=== PATIENT | male | born 1985 | race Caucasian/White ===

== ENCOUNTER 2019-03-15 23:56 | Emergency (ER) | payer OTHER ==
[~2019-03-15] VITALS: Ht 180.3 cm; Wt 117.9 kg
[~2019-03-15 23:56] MED LIST: CEPH500 PO; OXYACE5T PO
[2019-03-16] MEDS ORDERED: LORCET 5-325 M1 EACH (00:08)
[2019-03-16] MEDS ORDERED: IBUP800 (00:08)
[2019-03-16] MEDS ORDERED: CLIN300 PO (00:17)
== END 2019-03-16 00:33 | disposition home or self-care (01) ==
LOC: ER 23:56
DX: G89.18 Other acute postprocedural pain (principal); K08.89 Other specified disorders of teeth and supporting structures; Z79.899 Other long term (current) drug therapy
CPT/HCPCS: 99282; A9270

== ENCOUNTER 2019-03-20 21:55 | Emergency (ER) | payer OTHER ==
[~2019-03-20] VITALS: Ht 180.3 cm; Wt 117.9 kg
[~2019-03-20 21:55] MED LIST changes: +CLIN300 PO; +IBUP800; +LORCET 5-325 M1 EACH
[2019-03-20] MEDS ORDERED: Zantac150 MG PO (22:17)
[2019-03-20 22:41] LABS: BASOPHILS ABSOLUTE AUTO 0.12 K/mm3 (0.00-0.23); BASOPHILS PERCENT AUTO 1 % (0-2); EOSINOPHILS ABSOLUTE AUTO 0.36 K/mm3 (0.00-0.68); EOSINOPHILS PERCENT AUTO 3 % (0-6); Hematocrit 45.3 % (37.0-53.0); Hemoglobin 15.2 g/dL (13.5-17.5); IMMATURE GRAN ABSOLUTE AUTO 0.02 K/mm3 (0.00-0.10); IMMATURE GRAN PERCENT AUTO 0 % (0-1); LYMPHOCYTES ABSOLUTE AUTO 3.82 K/mm3 (0.84-5.20); LYMPHOCYTES PERCENT AUTO 29 % (21-46); MONOCYTES ABSOLUTE AUTO 1.17 K/mm3 (0.16-1.47); MONOCYTES PERCENT AUTO 9 % (4-13); Mean Corpuscular HGB 32.3 pg (26.0-34.0); Mean Corpuscular HGB Conc 33.6 g/dL (31.5-36.5); Mean Corpuscular Volume 96 fL (80-100); Mean Platelet Volume 9.6 fL (9.1-12.4); NEUTROPHILS ABSOLUTE AUTO 7.73 K/mm3 (1.96-9.15); NEUTROPHILS PERCENT AUTO 58 % (41-73); Platelet Count 240 K/mm3 (150-400); RDW Coefficient Variation 12.5 % (11.7-14.2); RDW Standard Deviation 44.2 fL (35.1-46.3); White Blood Cell Count 13.22 K/mm3 (4.00-11.30)
[2019-03-20 22:58] LABS: Alanine Aminotransfer (ALT/SGP 55 U/L (12-78); Albumin, Blood 4.3 g/dL (3.4-5.0); Alk Phos 75 U/L (50-136); Anion Gap 6 mmol/L (6-16); Aspartate Aminotrans (AST/SGOT 38 U/L (12-37); Bilirubin, Total 0.7 mg/dL (0.1-1.0); Blood Urea Nitrogen 14 mg/dL (8-24); Bun/Creatinine Ratio 13.5 (12.0-20.0); CO2, Blood 27 mmol/L (21-32); Calcium, Blood 9.6 mg/dL (8.5-10.1); Chloride, Blood 108 mmol/L (98-108); Creatinine, Blood 1.04 mg/dL (0.60-1.20); Globulin, Blood 4.2 g/dL (2.2-4.0); Glomerular Filtration Rate >60 (60-); Glucose, Blood 85 mg/dL (70-99); Sodium, Blood 141 mmol/L (136-145); Total Protein, Blood 8.5 g/dL (6.4-8.2)
[2019-03-20 22:59] LABS: Source, Urine Clean Catch
[2019-03-20 23:05] LABS: Bilirubin, Urine Neg (Neg); Blood, Urine Neg (Neg); Glucose Qualitative, Urine Neg (Neg); Ketones, Urine Neg (Neg); Leukocyte Esterase, Urine Neg (Neg); Nitrite, Urine Neg (Neg); Protein, Urine Neg (Neg); Specific Gravity, Urine 1.025 (1.003-1.022); Urobilinogen, Urine NORM (Normal)
[2019-03-20 23:18] LABS: Appearance, Urine Clear (Clear); Color, Urine Yellow (P-Yellow)
[2019-03-21] MEDS ORDERED: ONDA4ODT MM (01:53)
== END 2019-03-21 02:05 | disposition home or self-care (01) ==
LOC: ER 21:55
PROVIDERS: Emergency Medicine
DX: R11.2 Nausea with vomiting, unspecified (principal); R19.7 Diarrhea, unspecified; R10.9 Unspecified abdominal pain; Z87.891 Personal history of nicotine dependence; Z79.899 Other long term (current) drug therapy
CPT/HCPCS: 36415; 80053; 81003; 83690; 85025; 96374; 99284-25; J2405

== ENCOUNTER 2019-12-10 06:53 | Day surgery (SDC) | payer OTHER ==
[~2019-12-10] VITALS: Ht 180.3 cm; Wt 118.2 kg
[~2019-12-10 06:53] MED LIST changes: +BELPTAB PO; +Bentyl20 MG; +FAMO20; +ONDA4ODT; +ONDA4ODT MM; +ONDA4ODT SL; +Zantac150 MG PO
== END 2019-12-10 08:48 | disposition home or self-care (01) ==
LOC: ORSCSDS 06:53
PROVIDERS: Student in an Organized Health Care Education/Training Program
PROC: 0DBG8ZX Excision of Left Large Intestine, Via Natural or Artificial Opening Endoscopic, Diagnostic (ICD-10-PCS; principal; 2019-12-10 08:00)
PROC: 0DBF8ZX Excision of Right Large Intestine, Via Natural or Artificial Opening Endoscopic, Diagnostic (ICD-10-PCS; principal; 2019-12-10 08:00)
DX: R10.84 Generalized abdominal pain (principal); K92.1 Melena; R11.2 Nausea with vomiting, unspecified; K52.832 Lymphocytic colitis; K64.8 Other hemorrhoids; K21.9 Gastro-esophageal reflux disease without esophagitis; E66.01 Morbid (severe) obesity due to excess calories; Z68.36 Body mass index [BMI] 36.0-36.9, adult; Z79.899 Other long term (current) drug therapy
CPT/HCPCS: 88305; J0461; J2250; J2405; J2704; J7120

== ENCOUNTER 2024-02-05 00:36 | Day surgery (SDC) | payer OTHER ==
[2024-02-05] MEDS ORDERED: Sod Ferric Gluc Complx/Sucrose 125 MG in NS 100 ML IV SCH (01:00)
[2024-02-05 14:10] VITALS: BP 134/79
[2024-02-05] MEDS ORDERED: BUSPIRONE HCL7.5 M1 PO (15:18)
[2024-02-05] MEDS ORDERED: Calcium Carbon500 MG PO (15:18)
[2024-02-05] MEDS ORDERED: AMIT75 PO (15:19)
== END 2024-02-05 15:24 | disposition home or self-care (01) ==
LOC: ATC 00:36
DX: D64.9 Anemia, unspecified (principal); K21.9 Gastro-esophageal reflux disease without esophagitis; E66.9 Obesity, unspecified
CPT/HCPCS: 96365; J2916

== ENCOUNTER 2024-02-12 03:37 | Day surgery (SDC) | payer OTHER ==
[~2024-02-12 03:37] MED LIST changes: +AMIT75 PO; +BUSPIRONE HCL7.5 M1 PO; +Calcium Carbon500 MG PO; +Sod Ferric Gluc Complx/Sucrose 125 MG in NS 100 ML IV SCH
[2024-02-12 15:55] VITALS: BP 153/82
== END 2024-02-12 16:59 | disposition home or self-care (01) ==
LOC: ATC 03:37
DX: D64.9 Anemia, unspecified (principal); K21.9 Gastro-esophageal reflux disease without esophagitis; E66.09 Other obesity due to excess calories; Z68.36 Body mass index [BMI] 36.0-36.9, adult; Z79.899 Other long term (current) drug therapy
CPT/HCPCS: 96365; J2916

== ENCOUNTER 2024-02-26 01:26 | Day surgery (SDC) | payer OTHER ==
[2024-02-26 15:02] VITALS: BP 133/79
== END 2024-02-26 16:16 | disposition home or self-care (01) ==
LOC: ATC 01:26
DX: D64.9 Anemia, unspecified (principal); K21.9 Gastro-esophageal reflux disease without esophagitis; E66.9 Obesity, unspecified; Z79.899 Other long term (current) drug therapy
CPT/HCPCS: 96365; J2916

== ENCOUNTER 2024-03-11 02:31 | Day surgery (SDC) | payer OTHER ==
[2024-03-11 14:01] VITALS: BP 129/82
== END 2024-03-11 15:14 | disposition home or self-care (01) ==
LOC: ATC 02:31
DX: D64.9 Anemia, unspecified (principal); K21.9 Gastro-esophageal reflux disease without esophagitis; Z79.899 Other long term (current) drug therapy
CPT/HCPCS: 96365; J2916

== ENCOUNTER 2024-07-08 09:50 | Day surgery (SDC) | payer OTHER ==
[~2024-07-08] VITALS: Ht 180.3 cm; Wt 109.8 kg
[~2024-07-08 09:50] MED LIST changes: +Lactated Ringer's 1,000 ML IV ONE; -Sod Ferric Gluc Complx/Sucrose 125 MG in NS 100 ML IV SCH; +propofoL 50 ML IV ONE
[2024-07-08] MEDS ORDERED: HYDHCL25 (10:18)
[2024-07-08] MEDS ORDERED: Buspirone HCl15 MG (10:18)
[2024-07-08] MEDS ORDERED: BUSPIRONE HCL30 M1 (10:18)
[2024-07-08] MEDS ORDERED: FERSU300 (10:18)
[2024-07-08] MEDS ORDERED: Lactated Ringer's 1,000 ML IV ONE (10:40)
[2024-07-08] MEDS ORDERED: Midazolam HCL 1 MG/ML 5MLVIAL ONE (11:20)
[2024-07-08] MEDS ORDERED: Glycopyrrolate 0.2 MG/ML 1MLVIAL ONE (11:47)
[2024-07-08 12:44] VITALS: BP 144/93
== END 2024-07-08 12:30 | disposition home or self-care (01) ==
LOC: ORSCSDS 09:50
PROVIDERS: Internal Medicine Gastroenterology
PROC: 0DB58ZX Excision of Esophagus, Via Natural or Artificial Opening Endoscopic, Diagnostic (ICD-10-PCS; principal; 2024-07-08 11:00)
PROC: 0DB78ZX Excision of Stomach, Pylorus, Via Natural or Artificial Opening Endoscopic, Diagnostic (ICD-10-PCS; principal; 2024-07-08 11:00)
DX: D50.0 Iron deficiency anemia secondary to blood loss (chronic) (principal); K92.1 Melena; K21.9 Gastro-esophageal reflux disease without esophagitis; R23.4 Changes in skin texture; R11.0 Nausea; K25.4 Chronic or unspecified gastric ulcer with hemorrhage; Z79.899 Other long term (current) drug therapy; K64.8 Other hemorrhoids; E66.9 Obesity, unspecified; Z68.34 Body mass index [BMI] 34.0-34.9, adult; I10 Essential (primary) hypertension; F41.9 Anxiety disorder, unspecified
CPT/HCPCS: 88305; 88312; 88341; 88342; J2250; J2704; J7120

== ENCOUNTER 2025-03-01 16:51 | Emergency (ER) | payer OTHER ==
[~2025-03-01] VITALS: Ht 180.3 cm; Wt 117.9 kg
[~2025-03-01 16:51] MED LIST changes: +BUSPIRONE HCL30 M1; +Buspirone HCl15 MG; +FERSU300; +HYDHCL25; -Lactated Ringer's 1,000 ML IV ONE; -propofoL 50 ML IV ONE
[2025-03-01 17:47] LABS: BASOPHILS ABSOLUTE AUTO 0.16 K/mm3 (0.00-0.23); BASOPHILS PERCENT AUTO 2 % (0-2); EOSINOPHILS ABSOLUTE AUTO 0.30 K/mm3 (0.00-0.68); EOSINOPHILS PERCENT AUTO 3 % (0-6); Hematocrit 38.2 % (37.0-53.0); Hemoglobin 12.3 g/dL (13.5-17.5); IMMATURE GRAN ABSOLUTE AUTO 0.02 K/mm3 (0.00-0.10); IMMATURE GRAN PERCENT AUTO 0 % (0-1); LYMPHOCYTES ABSOLUTE AUTO 3.03 K/mm3 (0.84-5.20); LYMPHOCYTES PERCENT AUTO 31 % (21-46); MONOCYTES ABSOLUTE AUTO 0.89 K/mm3 (0.16-1.47); MONOCYTES PERCENT AUTO 9 % (4-13); Mean Corpuscular HGB Conc 32.2 g/dL (31.5-36.5); Mean Corpuscular Volume 85 fL (80-100); NEUTROPHILS ABSOLUTE AUTO 5.46 K/mm3 (1.96-9.15); NEUTROPHILS PERCENT AUTO 56 % (41-73); NRBC ABSOLUTE 0.00 K/mm3 (0.00-0.02); NRBC Auto 0.0 /100 WBC (0.0-0.2); Platelet Count 250 K/mm3 (150-400); RDW Coefficient Variation 14.6 % (11.7-14.2); RDW Standard Deviation 44.9 fL (35.1-46.3)
[2025-03-01 18:20] LABS: Source, Urine Clean Catch
[2025-03-01 18:23] LABS: Bilirubin, Urine Neg (Neg); Color, Urine Yellow (P-Yellow); Glucose Qualitative, Urine Neg (Neg); Ketones, Urine Neg (Neg); Leukocyte Esterase, Urine Neg (Neg); Protein, Urine 1+ (Neg); Specific Gravity, Urine 1.010 (1.003-1.022); Urobilinogen, Urine 1+ (Normal)
[2025-03-01 18:34] LABS: Alanine Aminotransfer (ALT/SGP 66.0 U/L (12-78); Albumin, Blood 3.9 g/dL (3.4-5.0); Albumin/Globulin Ratio 1.1 (0.8-1.8); Anion Gap 7.0 mmol/L (3-11); Aspartate Aminotrans (AST/SGOT 37.0 U/L (12-37); Bilirubin, Total 0.6 mg/dL (0.1-1.0); Blood Urea Nitrogen 9.0 mg/dL (8-24); CO2, Blood 24.0 mmol/L (21-32); Calcium, Blood 9.0 mg/dL (8.5-10.1); Chloride, Blood 109.0 mmol/L (98-108); Creatinine, Blood 1.12 mg/dL (0.60-1.20); Globulin, Blood 3.5 g/dL (2.2-4.0); Glucose, Blood 116.0 mg/dL (70-99); Potassium, Blood 4.0 mmol/L (3.5-5.5); Sodium, Blood 136.0 mmol/L (136-145); Total Protein, Blood 7.4 g/dL (6.4-8.2)
[2025-03-01] MEDS ORDERED: Ketorolac Tromethamine 15mg Vial IV ONE (21:15)
[2025-03-01 21:33] VITALS: BP 147/86
== END 2025-03-01 21:33 | disposition home or self-care (01) ==
LOC: ER 16:51
PROVIDERS: Physician Assistant
DX: M54.9 Dorsalgia, unspecified (principal); R10.9 Unspecified abdominal pain; K21.9 Gastro-esophageal reflux disease without esophagitis; Z88.6 Allergy status to analgesic agent; Z79.899 Other long term (current) drug therapy; Z87.891 Personal history of nicotine dependence; Z59.89 Other problems related to housing and economic circumstances
CPT/HCPCS: 74177; 80053; 85025; 96374-59; 99284-25; J1885; Q9967